=== PATIENT | male | born 1945 | race Caucasian/White ===

== ENCOUNTER → 2018-02-26 | Outpatient (CLI) | payer MEDICARE ==
[~2018-02-26] MED LIST: CARB200T6 PO; CEPH-38 PO; FAMO20TA5 PO; FOLI1TAB6 PO; HYOS0.1216 PO; ONDA-42 SL; PRD20T PO; QUET100T PO; TRIH5TAB2 PO
--- NOTE | 2018-02-26 17:36 | Diagnostic Imaging Report ---
INDICATION: 72-year-old male in need of bone density screening. TECHNIQUE: DEXA scan performed of the lumbar spine and bilateral hips. COMPARISON: None FINDINGS: The lumbar spine bone mineral density from L2-L4 measures 1.527 g per square centimeter, with a T score of 2.4 and a Z score of 2.6. The bone mineral density of the total right hip measures 1.063 g per square centimeter, with a T score of -0.3 and a Z score of 0.3. The bone marrow density of the right femoral neck measures 1.009 g per square centimeter, with a T score of -0.5 and a Z score of 0.6. The mineral density of the total left hip measures 1.060 g per square centimeter, with a T score of -0.3 and a Z score of 0.3. The bone mineral density of the left femoral neck measures 1.048 g per square cm, with a T score of -0.2 and a Z score of 0.9. IMPRESSION: 1. Normal bone mineral density by WHO criteria. 2. Baseline study. Dictated by: Dictated on workstation # [id number]
== END ==
LOC: RAD 08:53
PROVIDERS: ATTEND Pediatrics
DX: Z13.820 Encounter for screening for osteoporosis (principal); M85.811 Other specified disorders of bone density and structure, right shoulder
CPT/HCPCS: 77080

== ENCOUNTER 2020-08-19 18:16 | Emergency (ER) | payer MEDICARE, OTHER ==
[~2020-08-19] VITALS: Ht 180.3 cm; Wt 131.5 kg
--- NOTE | 2020-08-19 18:27 | ED General ---
General Stated Complaint: COVID POSITIVE Source of Information: Patient Exam Limitations: No Limitations History of Present Illness Date Seen by Provider: Aug 19, 2020 Time Seen by Provider: 18:18 Initial Comments Patient is a 74-year-old male who presents to the emergency room by EMS today after slipping out of his easy chair at home. Patient states that he has had flulike symptoms for the last 2 weeks and was diagnosed with coronavirus on Friday of this week, 6 days ago. Patient states that he has had shortness of breath and cough. He has had a little bit of diarrhea. Denies earache, sore throat, nasal congestion, rhinorrhea. Denies headache. Has had some body aches. Denies issues. Patient states he did not injure himself when slipping out of the easy chair. Patient states he was just too weak to get up. Per EMS report that already responded once to the home today to pick him up due to weakness. Patient reportedly lives at home with . He has a history of schizophrenia and is on medications for this as well as hypertension. EMS reports the patient had oxygen saturations at 88 or 89% on arrival they placed him on 4 L and he was saturating 96% on oxygen. He is febrile with 102 fever. All other review of systems reviewed and negative except as stated above. Timing/Duration: 1 Week Severity: Moderate Allergies and Home Medications Allergies Coded Allergies: No Known Drug Allergies (Unverified , 10/09/14) Home Medications Carbamazepine 200 Mg Tablet, 200 MG PO BID, (Reported) Cephalexin Monohydrate 500 Mg Capsule, 1 EACH PO QID Prescribed by: KEYA EWING on 10/11/14 0850 Famotidine 20 Mg Tablet, 1 EACH PO BID Prescribed by: KEYA EWING on 10/11/14 0850 Folic Acid/Mv,Fe,Other Min 1 Each Tablet, 2 TAB PO DAILY, (Reported) Hyoscyamine Sulfate 0.125 Mg Tab, 1-2 EACH PO Q4HR PRN PRN for CRAMPS Prescribed by: KEENAN MEDINA on 11/17/142034 Ondansetron Hcl 4 Mg Tab, 4 MG SL Q4H FOR NAUSEA AND VOMITING Prescribed by: KEENAN MEDINA on 11/17/142034 Prednisone 20 Mg Tab, 20 MG PO DAILY@0700 Prescribed by: KEYA EWING on 10/11/14 0848 Quetiapine Fumarate 100 Mg Tablet, 300 MG PO HS, (Reported) Trihexyphenidyl Hcl 5 Mg Tablet, 5 MG PO BID, (Reported) Patient Home Medication List Home Medication List Reviewed: Yes Review of Systems Review of Systems Constitutional: see HPI, chills, fever, malaise, weakness EENTM: no symptoms reported Respiratory: cough, short of breath Cardiovascular: no symptoms reported Gastrointestinal: nausea; No vomiting Genitourinary: no symptoms reported Musculoskeletal: no symptoms reported Skin: no symptoms reported Psychiatric/Neurological: Other (history of schizophrenia) All Other Systems Reviewed Negative Unless Noted: Yes Past Nwxeisy-Nnaudb-Kzptwz Hx Immunizations Up To Date Tetanus Booster (TDap): More than 5yrs PED Vaccines UTD: No Date of Pneumonia Vaccine: Jul 09, 2011 Date of Influenza Vaccine: May 23, 2014 Seasonal Allergies Seasonal Allergies: Yes Past Medical History Orthopedic Concussion Reproductive Disorders: No Sexually Transmitted Disease: No HIV/AIDS: No Gastroesophageal Reflux Fractures Schizophrenia, Depression Adverse Reaction/Blood Tranf: No Family Medical History Arthritis 19 MOTHER G8 SISTER Bone cancer 19 MOTHER Cataracts 19 MOTHER FH: mental illness 19 FATHER 19 MOTHER G8 BROTHER G8 BROTHER G8 BROTHER G8 SISTER G8 SISTER G8 SISTER HIV G8 BROTHER G8 SISTER Hepatitis C G8 SISTER SIDS (sudden syndrome) G8 BROTHER Thyroid disease G8 SISTER Physical Exam Vital Signs Vital Signs - First Documented 08/19/20 18:16 Temp 38.7 Pulse 113 Resp 28 B/P (MAP) 141/88 (105) Pulse Ox 94 O2 Delivery Nasal Cannula O2 Flow Rate 2.00 Capillary Refill : Height, Weight, BMI Height: 5'11" Weight: 205lbs. 5.0oz. 92.864306al; BMI Method:Stated General Appearance: No Apparent Distress, WD/WN Eyes: Bilateral Eye Normal Inspection, Bilateral Eye PERRL, Bilateral Eye EOMI HEENT: Normal ENT Inspection Neck: Normal Inspection, Supple Respiratory: Lungs Clear, Normal Breath Sounds (Slightly tachypneic), No Respiratory Distress Cardiovascular: Regular Rate, Rhythm, No Murmur Gastrointestinal: Normal Bowel Sounds, Non Tender, Soft Extremity: Normal Capillary Refill, Normal Inspection, Normal Range of Motion, Non Tender, No Pedal Edema Neurologic/Psychiatric: No Motor/Sensory Deficits, Normal Mood/Affect, event host II- XII Norm as Tested Skin: Normal Color, Warm/Dry, Tattoos/Piercings Focused Exam Lactate Level 08/19/20 18:15: Lactic Acid Level 1.99 Lactic Acid Level Laboratory Tests Test 08/19/20 18:15 Lactic Acid Level 1.99 MMOL/L (0.50-2.00) Progress/Results/Core Measures Suspected Sepsis SIRS Temperature: Pulse: Respiratory Rate: Laboratory Tests 08/19/20 18:15: White Blood Count 5.8 Blood Pressure / Mean: 08/19/20 18:15: Lactic Acid Level 1.99 Laboratory Tests 08/19/20 18:15: Creatinine 0.85, Platelet Count 214, Total Bilirubin 0.3 Results/Orders Lab Results Laboratory Tests Test 08/19/20 18:15 Range/Units White Blood Count 5.8 4.3-11.0 10^3/uL Red Blood Count 4.40 4.30-5.52 10^6/uL Hemoglobin 13.6 13.3-17.7 g/dL Hematocrit 42 40-54 % Mean Corpuscular Volume 95 80-99 fL Mean Corpuscular Hemoglobin 31 25-34 pg Mean Corpuscular Hemoglobin Concent 33 32-36 g/dL Red Cell Distribution Width 12.0 10.0-14.5 % Platelet Count 214 130-400 10^3/uL Mean Platelet Volume 11.6 9.0-12.2 fL Immature Granulocyte % (Auto) 0 % Neutrophils (%) (Auto) 73 42-75 % Lymphocytes (%) (Auto) 13 12-44 % Monocytes (%) (Auto) 14 H 0-12 % Eosinophils (%) (Auto) 0 0-10 % Basophils (%) (Auto) 0 0-10 % Neutrophils # (Auto) 4.2 1.8-7.8 10^3/uL Lymphocytes # (Auto) 0.7 L 1.0-4.0 10^3/uL Monocytes # (Auto) 0.8 0.0-1.0 10^3/uL Eosinophils # (Auto) 0.0 0.0-0.3 10^3/uL Basophils # (Auto) 0.0 0.0-0.1 10^3/uL Immature Granulocyte # (Auto) 0.0 0.0-0.1 10^3/uL Sodium Level 135 135-145 MMOL/L Potassium Level 3.9 3.6-5.0 MMOL/L Chloride Level 98 98-107 MMOL/L Carbon Dioxide Level 23 21-32 MMOL/L Anion Gap 14 5-14 MMOL/L Blood Urea Nitrogen 20 H 7-18 MG/DL Creatinine 0.85 0.60-1.30 MG/DL Estimat Glomerular Filtration Rate > 60 BUN/Creatinine Ratio 24 Glucose Level 113 H 70-105 MG/DL Lactic Acid Level 1.99 0.50-2.00 MMOL/L Calcium Level 8.6 8.5-10.1 MG/DL Corrected Calcium 8.8 8.5-10.1 MG/DL Total Bilirubin 0.3 0.1-1.0 MG/DL Aspartate Amino Transf (AST/SGOT) 113 H 5-34 U/L Alanine Aminotransferase (ALT/SGPT) 60 H 0-55 U/L Alkaline Phosphatase 93 40-136 U/L C-Reactive Protein High Sensitivity 22.32 H 0.00-0.50 MG/DL Total Protein 7.4 6.4-8.2 GM/DL Albumin 3.7 3.2-4.5 GM/DL Procalcitonin 0.15 H <0.10 NG/ML My Orders Orders - MIMA SCHILLING MD Ed Iv/Invasive Line Start (08/19/20 18:27) Cbc With Automated Diff (08/19/20 18:27) Comprehensive Metabolic Panel (08/19/20 18:27) Blood Culture (08/19/20 18:27) Procalcitonin (Pct) (08/19/20 18:27) Chest 1 View, Ap/Pa Only (08/19/20 18:27) Lactic Acid Analyzer (08/19/20 18:27) Acetaminophen Tablet/Caplet (Tylenol T (08/19/20 18:30) Ns Iv 1000 Ml (Sodium Chloride 0.9%) (08/19/20 18:30) Blood Culture (08/19/20 19:30) Medications Given in ED Current Medications Medications Dose Ordered Sig/Christ Route Start Time Stop Time Status Last Admin Dose Admin Acetaminophen 650 mg ONCE ONCE PO 08/19/20 18:30 08/19/20 18:32 DC 08/19/20 18:48 650 MG Vital Signs/I&O 08/19/20 18:16 Temp 38.7 Pulse 113 Resp 28 B/P (MAP) 141/88 (105) Pulse Ox 94 O2 Delivery Nasal Cannula O2 Flow Rate 2.00 Capillary Refill : Progress Note : Time: 19:27 Progress Note 74yo male to the ER with a complaint of generalized weakness and COvid 19. evaluation today includes a physical exam, CBC, Chem-12, CRP, procalcitonin, lactic acid, chest x-ray. Patient reportedly had some low oxygen saturations at home requiring oxygen supplementation. Here the patient looks well he is in no distress. Labs have been reviewed, the only thing elevated is his CRP at 22. Lactic acid is 1.9. Oxygen saturations at the current time are 91-92% on room air. 2009 Patient is feeling better. I believe his fever is down he looks more alert and bright eyed. Patient's oxygen saturations are 95, 96 on room air. His heart rate is down his blood pressure is good. His chest x-ray does show some patchy interstitial infiltrates consistent with some pneumonia. I have discussed with the patient a plan for self-care at home. I am going to write him a prescriptio n for an albuterol inhaler and have advised him to use this every 4-6 hours at home. He needs to be taking Tylenol to control his fever. He needs to be drinking lots of fluids. The patient verbalizes understanding of this plan of care and he is agreeable. All questions are sought and answered and he is stable for discharge to home. Diagnostic Imaging Diagonstic Imaging: Xray Plain Films/CT/US/NM/MRI: chest Comments [facility], [place] NAME: HILARY BARRIENTOS [facility] REC#: [id number] PT STATUS: REG ER : 1945 PHYSICIAN: MIMA SCHILLING MD ADMIT DATE: 08/19/20/ER Draft Date of Exam:08/19/20 CHEST 1 VIEW, AP/PA ONLY INDICATION: Shortness of air. Cough. Covid positive patient. COMPARISON: 10/09/2014. FINDINGS: Single frontal radiographic view of the chest was obtained and demonstrates somewhat shallow inspiratory volumes. There has been interval development of scattered areas of mildly prominent interstitium. There is no large effusion or pneumothorax. Cardiac silhouette and pulmonary vasculature within normal limits. Osseous structures show no acute abnormality. IMPRESSION: Interval development of scattered areas of mildly prominent interstitial opacities concerning for interstitial pneumonia. Dictated on workstation # [id number] Dict: 08/19/201920 Trans: 08/19/201936 [id number] Interpreted by: JOHNSON FERRARI MD Electronically signed by: Departure Impression Primary Impression: Pneumonia Qualified Codes: J18.9 - Pneumonia, unspecified organism Additional Impression: Coronavirus infection Disposition: HOME, SELF-CARE Condition: Stable Departure-Patient Inst. Decision time for Depature: 20:11 Referrals: [facility] [place],LOCAL PHYSICIAN (PCP) Primary Care Physician Patient Instructions: Pneumonia, Adult (DC), Coronavirus Disease 2019 (COVID- 19) (DC) Add. Discharge Instructions: Drink plenty of fluids at home to stay well-hydrated. Use Tylenol every 4 hours as needed for any fever over 100. You can also take ibuprofen at home for fever and body aches. I have written you a prescription for an albuterol inhaler. You can use this inhaler every 4-6 hours for shortness of breath. Use this inhaler around the clock while you are awake. Please call and follow-up with your primary care physician on Friday for an appointment next week. Return to the emergency department for any worsening shortness of breath or new, emergent, concerning symptoms. Scripts Albuterol Sulfate (PROAIR HFA) 1 Puff Puff 2 PUFF IH Q4H PRN for shortness of breath, #1 PUFF 1 PUFF = 90 MCG Prov: MIMA SCHILLING MD 08/19/20 Albuterol Sulfate (PROAIR HFA) 1 Puff Puff 2 PUFF IH Q4H PRN for shortness of breath, #1 PUFF 1 PUFF = 90 MCG Prov: MIMA SCHILLING MD 08/19/20 MIMA SCHILLING MD Aug 19, 2020 18:27
[2020-08-19] MEDS ORDERED: ACETAMINOPHEN 325 MG TABLET PO ONE (18:30)
[2020-08-19 18:36] LABS: BASOPHILS % (AUTO) 0 % (0-10); EOSINOPHILS % (AUTO) 0 % (0-10); HEMATOCRIT 42 % (40-54); HEMOGLOBIN 13.6 g/dL (13.3-17.7); LYMPHOCYTES # (AUTO) 0.7 10^3/uL (1.0-4.0); LYMPHOCYTES % (AUTO) 13 % (12-44); MEAN CORPUSCULAR HEMOGLOBIN 31 pg (25-34); MEAN CORPUSCULAR HGB CONC 33 g/dL (32-36); MEAN CORPUSCULAR VOLUME 95 fL (80-99); MEAN PLATELET VOLUME 11.6 fL (9.0-12.2); MONOCYTES # (AUTO) 0.8 10^3/uL (0.0-1.0); MONOCYTES % (AUTO) 14 % (0-12); NEUTROPHILS # (AUTO) 4.2 10^3/uL (1.8-7.8); NEUTROPHILS % (AUTO) 73 % (42-75); PLATELET COUNT 214 10^3/uL (130-400); WHITE BLOOD COUNT 5.8 10^3/uL (4.3-11.0)
[2020-08-19 18:40] LABS: ALBUMIN 3.7 GM/DL (3.2-4.5); CHLORIDE 98 MMOL/L (98-107); POTASSIUM 3.9 MMOL/L (3.6-5.0); SODIUM 135 MMOL/L (135-145)
[2020-08-19 18:41] LABS: CALCIUM 8.6 MG/DL (8.5-10.1)
[2020-08-19 18:43] LABS: GLUCOSE 113 MG/DL (70-105); TOTAL PROTEIN 7.4 GM/DL (6.4-8.2)
[2020-08-19 18:44] LABS: BILIRUBIN,TOTAL 0.3 MG/DL (0.1-1.0); CARBON DIOXIDE 23 MMOL/L (21-32)
[2020-08-19 18:46] LABS: ALKALINE PHOSPHATASE 93 U/L (40-136); CREATININE SERUM 0.85 MG/DL (0.60-1.30); GFR ESTIMATED > 60
[2020-08-19 18:47] LABS: BUN/CREATININE RATIO 24
[2020-08-19] MEDS: NS IV 1000 ML 1,000 ML IV SCH ×2 (18:48→19:55)
[2020-08-19 18:49] LABS: ALANINE AMINOTRANSFERASE 60 U/L (0-55)
--- NOTE | 2020-08-19 19:38 | Diagnostic Imaging Report ---
INDICATION: Shortness of air. Cough. Covid positive patient. COMPARISON: 10/09/2014. FINDINGS: Single frontal radiographic view of the chest was obtained and demonstrates somewhat shallow inspiratory volumes. There has been interval development of scattered areas of mildly prominent interstitium. There is no large effusion or pneumothorax. Cardiac silhouette and pulmonary vasculature within normal limits. Osseous structures show no acute abnormality. IMPRESSION: Interval development of scattered areas of mildly prominent interstitial opacities concerning for interstitial pneumonia. Dictated by: Dictated on workstation # [id number]
[2020-08-19] MEDS ORDERED: RT-ALBUINH IH ×2 (20:16→20:25)
--- NOTE | 2020-08-19 20:30 | NUR ---
PT NOTIFIED OF PT CONDITION AND ALL DC INSTRUCTIONS REVIEWED. VERBALIZED UNDERSTANDING. TO PUBLIC [employer]IT[employer] SALES REPRESENTATIVE PT.
[2020-08-19 21:10] VITALS: BP 96/66
== END 2020-08-19 21:10 | disposition home or self-care (01) ==
LOC: EDUNIT# 18:16 → ER 18:16
DX: J18.9 Pneumonia, unspecified organism (principal); U07.1 COVID-19; F20.9 Schizophrenia, unspecified; F32.9 Major depressive disorder, single episode, unspecified; K21.9 Gastro-esophageal reflux disease without esophagitis; Z82.61 Family history of arthritis; Z80.8 Family history of malignant neoplasm of other organs or systems; Z87.820 Personal history of traumatic brain injury; Z79.52 Long term (current) use of systemic steroids
CPT/HCPCS: 36415; 71045; 80053; 83605; 84145; 85025; 86141; 87040

== ENCOUNTER → 2021-01-17 | Outpatient (CLI) | payer MEDICARE ==
[~2021-01-17] MED LIST changes: +RT-ALBUINH IH; +RT-ALBUTEROL SULF 2.5 MG/3 ML PRE-MIX VIAL INH ONE
== END ==
LOC: RT 08:00
PROVIDERS: ATTEND Nurse Practitioner Family
DX: R06.09 Other forms of dyspnea (principal); Z86.16 Personal history of COVID-19
CPT/HCPCS: 94060; 94726; 94729